=== PATIENT | female | born 1990 | race Caucasian/White ===

== ENCOUNTER 2024-09-25 19:23 | Emergency (ER) | payer BC, SELFPAY ==
[2024-09-25 19:26] VITALS: BP 154/98
[2024-09-25 19:47] LABS: % Basophils 0.1 % (0-2); % Eosinophils 1.2 % (0-6); % Immature Granulocytes 0.2 % (0-0.5); % Lymphocytes 36.9 % (20.5-51.1); % Monocytes 7.5 % (1.7-9.3); % Neutrophils 54.1 % (42.2-75.2); Absolute Eosinophils 0.1 10^3/uL (0-0.7); Absolute Lymphocytes 3.3 10^3/uL (1.2-3.4); Absolute Monocytes 0.7 10^3/uL (0.1-0.6); Absolute Neutrophils 4.8 10^3/uL (1.4-6.5); Hematocrit 42.2 % (37.0-47.0); Hemoglobin 14.7 g/dL (12.0-16.0); Mean Corp Hgb Conc. 34.8 g/dL (33.0-37.0); Mean Corpuscular Hgb 29.4 pg (27.0-31.0); Mean Corpuscular Volume 84.4 fL (81.0-99.0); Mean Platelet Volume 9.9 fL (7.4-10.4); Nucleated Red Blood Cells % 0 %; Platelet Count 326 10^3/uL (130-400); Red Cell Dist. Width 12.3 % (11.5-14.5); Urine Albumin Negative (Neg - Trace); Urine Bilirubin Negative (Negative); Urine Character Clear (Clear); Urine Color Yellow; Urine Glucose Negative (Negative); Urine Ketone Negative (Negative); Urine Leukocyte Negative (Negative); Urine Nitrite Negative (Negative); Urine Occult Blood Negative (Negative); Urine Specific Gravity 1.015 (<1.030); Urine Urobilinogen Negative (Neg - 1+); White Blood Cell Count 8.9 10^3/uL (4.8-10.8)
[2024-09-25 20:02] LABS: ALT (SGPT) 18 U/L (0-35); AST (SGOT) 20 U/L (14-36); Albumin 4.5 g/dl (3.5-5.0); Alkaline Phosphatase 60 U/L (38-126); Blood Urea Nitrogen 9 mg/dl (7-17); Calcium 9.7 mg/dl (8.4-10.2); Carbon Dioxide 27 mmol/L (22-30); Chloride 103 mmol/L (98-107); Glucose 94 mg/dl (70-99); Potassium 4.2 mmol/L (3.5-5.1); Sodium 140 mmol/L (135-145); Total Bilirubin 0.8 mg/dl (0.2-1.3); eGFR > 60.00
[2024-09-25 20:11] LABS: Total Protein 7.6 g/dl (6.3-8.2)
[2024-09-25 20:37] LABS: HCG, Serum Qualitative Screen Negative
[2024-09-25] MEDS: NSS 1000 IV (21:52)
[2024-09-25] MEDS: TORADOL 30 MG IV (21:52)
--- NOTE | 2024-09-25 22:00 | ED.GENMED ---
History of Present Illness
<Gina Joiner NP - Last Filed: 09/26/24 22:02>
General
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
Source: patient
Exam Limitations: none
Time Seen by Provider: 09/25/24 20:19
Nursing documentation reviewed up to this point in time: agreed with
History of Present Illness
History of Present Illness:
Patient to ED with complaint of pain with urination, noticing sediment in urine. Symptoms started this AM. Denies fever/chills, n/v/d. No back or abdominal pain. Brought self to ED for eval.
Past History
<Gina Joiner NP - Last Filed: 09/26/24 22:02>
Past History
ED Past Medical History: Psychiatric and Other (Currently in work-up for possible auto-immune disorder (PCP))
Review of Systems
<Gina Joiner NP - Last Filed: 09/26/24 22:02>
Review of Systems
Allergies reviewed?: Yes
All Other Systems: ROS reviewed and negative except as documented in HPI and ROS
Constitutional: Reports no symptoms
EENT: Reports no symptoms
Respiratory: Reports no symptoms
Cardiac: Reports no symptoms
ABD/GI: Reports no symptoms
: Reports dysuria
Musculoskeletal: Reports no symptoms
Skin: Reports other (she reports multiple open sores on trunk)
Neurological: Reports no symptoms
Psychiatric: Reports no symptoms
Phy Exam
<Gina Joiner NP - Last Filed: 09/26/24 22:02>
General Physical Exam
General Presentation: well appearing and no apparent distress
General age: appears stated age
General Skin: warm and dry
General Habitus: normal
General Mental: alert
General Hydration: appears well hydrated
Musculoskeletal Exam
Musculoskeletal Exam: full ROM and neuro vasc intact
Skin Exam
Skin Exam: normal color, warm/dry and other (Muliple scattered scabbed wounds on trunk and neck. no s/s cellulitis. No drainage.)
Psychiatric Exam
Psychiatric Exam: normal mood/affect
Course
<Gina Joiner NP - Last Filed: 09/26/24 22:02>
Orders/Labs/Results
Orders:
Orders
09/25/24 19:37
Complete Blood Count/With Diff Urgent
Comprehensive Metabolic Panel Urgent
HCG, Serum Qualitative Screen Urgent
Comment: ADD ON
Urinalysis Reflex To Culture Urgent
Date Specimen was Collected: 09/25/24
Time Specimen was Collected: 19:29
09/25/24 20:20
Add On- LAB Urgent
Tests Added?: hcg serum qualitative
09/25/24 20:45
Pelvis (Non Obstetric) US [US Pelvis Only (non-obstetric)] Urgent
Comment:
Reason For Exam: pelvic pain
09/25/24 21:41
0.9% Sodium Chloride 1000 ml [Nss] 1,000 ml IV BOLUS
Ketorolac [Toradol] 30 mg IV NOW STA
09/26/24 00:24
Acetaminophen [Tylenol] 1,000 mg PO NOW STA
Abnormal Lab Results
09/25/24
19:37
Absolute Monos (auto) 0.7 H 10^3/uL
(0.1-0.6)
09/25/24 19:37
09/25/24 19:37
Vital Signs
Initial and Last Documented VS:
Initial Vital Signs
Temp Pulse Resp BP Pulse Ox
98.5 F 90 18 154/98 98
09/25/24 19:26 09/25/24 19:26 09/25/24 19:26 09/25/24 19:26 09/25/24 19:26
Last Documented Vital Signs
Temp Pulse Resp BP Pulse Ox
98.5 F 85 18 138/86 98
09/25/24 19:26 09/26/24 01:08 09/26/24 01:08 09/26/24 01:08 09/26/24 01:08
<Merissa Zepeda PA-C - Last Filed: 09/26/24 02:15>
Orders/Labs/Results
Orders:
Orders
09/25/24 19:37
Complete Blood Count/With Diff Urgent
Comprehensive Metabolic Panel Urgent
HCG, Serum Qualitative Screen Urgent
Comment: ADD ON
Urinalysis Reflex To Culture Urgent
Date Specimen was Collected: 09/25/24
Time Specimen was Collected: 19:29
09/25/24 20:20
Add On- LAB Urgent
Tests Added?: hcg serum qualitative
09/25/24 20:45
Pelvis (Non Obstetric) US [US Pelvis Only (non-obstetric)] Urgent
Comment:
Reason For Exam: pelvic pain
09/25/24 21:41
0.9% Sodium Chloride 1000 ml [Nss] 1,000 ml IV BOLUS
Ketorolac [Toradol] 30 mg IV NOW STA
09/26/24 00:24
Acetaminophen [Tylenol] 1,000 mg PO NOW STA
Abnormal Lab Results
09/25/24
19:37
Absolute Monos (auto) 0.7 H 10^3/uL
(0.1-0.6)
09/25/24 19:37
09/25/24 19:37
Vital Signs
Initial and Last Documented VS:
Initial Vital Signs
Temp Pulse Resp BP Pulse Ox
98.5 F 90 18 154/98 98
09/25/24 19:26 09/25/24 19:26 09/25/24 19:26 09/25/24 19:26 09/25/24 19:26
Last Documented Vital Signs
Temp Pulse Resp BP Pulse Ox
98.5 F 85 18 138/86 98
09/25/24 19:26 09/26/24 01:08 09/26/24 01:08 09/26/24 01:08 09/26/24 01:08
<Merissa Zepeda PA-C - Last Filed: 09/26/24 02:15>
*Critical Care Note
Total Time (30-74mins, 75-104mins- exclusive of procedures): Not Applicable
<Merissa Zepeda PA-C - Last Filed: 09/26/24 02:15>
Patient Management
Escalation/DeEscalation of care consider admission/obs:
Update, Merissa Zepeda PA-C, received patient in signout.
On reevaluation, patient is well-appearing in no acute distress she has no pain at this time. Her ultrasound reveals left-sided hemorrhagic ovarian cyst. With normal flow. Low suspicion for torsion. Patient given ultrasound results and a paper
copy. Patient will follow-up with her [employer] Dr. Oconnor. Patient stable for discharge.
<Gina Joiner NP - Last Filed: 09/26/24 22:02>
Update Note
Update Note:
Patient teary. States she has been having pelvic pain for some time. SHe was given rx for pelvic US by PCP but earliest availabel appt is at the end of october. She is upset about this. I will order US tonight for her. No pelvic discharge, no
irregular bleeding.
ED Attending Note
<Gina Joiner NP - Last Filed: 09/26/24 22:02>
-
Portions of this chart may have been created with voice recognition software.� Occasional wrong word or��sound alike� substitutions may have occurred due to the inherent limitations of voice recognition software.
Discharge Plan
Departure
Patient Disposition: Home (Routine Discharge)
Date of Disposition: 09/26/24
Time of Disposition: 00:59
Patient with high blood pressure during this ER visit?: No
Condition: Good
Covid-19: Not Applicable
Discharge Problem:
Pain with urination
Instructions: Dysuria, Adult (DC)
Referrals:
Michael Tay, DO [Family Provider] - Tomorrow
Padmini Oconnor, [Active] - Next open appointment
Activity Restrictions/Additional Instructions:
Follow up with your family doctor in the AM. Please schedule a follow up appointment with Dr. Oconnor for a comprehensive FINISHED CLOTH EXAMINER exam.
Your ultrasound reveals a 3.9 hemorrhagic cyst in the left ovary with normal flow.
Interventions
Interventions:
*Risk Screen - Suicide Last Done: 09/25/24 19:26
*General Assessment Last Done: 09/25/24 19:26
*Neglect/Abuse Screening Last Done: 09/25/24 19:26
*ED- Fall Risk Assessment Last Done: 09/25/24 19:26
*ED COVID-19 Vaccine History Last Done: 09/25/24 19:26
*Nursing Disposition Last Done: 09/26/24 01:11
ED-Female Genitourinary Assessment Last Done: 09/25/24 20:00
Discharge Date and Time
Discharge Date/Time: 09/26/24 01:11
Print Language: [id number]
[2024-09-26] MEDS: TYLENOL 1000 MG PO (00:28)
[2024-09-26 01:08] VITALS: BP 138/86
== END 2024-09-26 01:11 | disposition home or self-care (01) ==
LOC: EMR 19:23
PROVIDERS: Emergency Medicine; EMERGENCY PHYSICIAN Emergency Medicine; FAMILY PHYSICIAN Family Medicine
DX: R30.9 Painful micturition, unspecified (principal); N83.202 Unspecified ovarian cyst, left side
CPT/HCPCS: 96374; 96361; 99284; 76856; 80053; 81003; 84703; 85025